=== PATIENT | female | born 1925 | race Caucasian/White ===

== ENCOUNTER → 2017-01-25 | Outpatient (REF) | payer MEDICARE, OTHER ==
[~2017-01-25] MED LIST: /PANT40TA PO; /WARF25TA PO; AMBI12.52 PO; BISAC5TA PO; COLA50CA3 PO; MEGE20TA PO; MV-OCAP PO; MYLASSUD PO; PERCOCET PO; TUMS500C PO; TYLE325T5 PO; VITA500T53 PO; ZOFR4TAB3 SL
== END ==
LOC: M LAB REF 18:08
PROVIDERS: ATTEND Internal Medicine
DX: D51.8 Other vitamin B12 deficiency anemias (principal)